=== PATIENT | male | born 2000 | race Caucasian/White ===

== ENCOUNTER 2019-09-18 18:57 | Emergency (ER) | payer OTHER ==
[~2019-09-18] VITALS: Ht 170.2 cm; Wt 54.4 kg
[2019-09-18] MEDS ORDERED: AMOXICILLIN 50500 M1 PO (20:10)
[2019-09-18] MEDS ORDERED: PROMETH-CODEIN 65 ML PO (20:10)
[2019-09-18] MEDS ORDERED: ZOFRAN4 MG PO (20:10)
[2019-09-18 20:46] VITALS: BP 110/53
== END 2019-09-18 20:46 | disposition home or self-care (01) ==
LOC: ER 18:57
DX: J18.9 Pneumonia, unspecified organism (principal)